=== PATIENT | female | born 1945 ===

== ENCOUNTER → 2017-05-17 | Emergency (ER) | payer OTHER ==
[~2017-05-17] VITALS: Ht 165.1 cm; Wt 72.6 kg
[~2017-05-17] MED LIST: CITALOPRAM HBR20 MG
== END | disposition home or self-care (01) ==
LOC: ER 10:39
DX: R42 Dizziness and giddiness (principal); F41.9 Anxiety disorder, unspecified

== ENCOUNTER 2018-10-20 15:03 | Outpatient (CLI) | payer OTHER | END 2018-10-20 15:07 | disposition home or self-care (01) | LOC: RAD 15:03 | DX: R05 Cough (principal); J31.0 Chronic rhinitis; J32.8 Other chronic sinusitis ==

== ENCOUNTER → 2018-10-25 16:50 | Outpatient (CLI) | payer OTHER | END | disposition home or self-care (01) | LOC: LAB 16:50 | DX: E55.9 Vitamin D deficiency, unspecified (principal); M85.88 Other specified disorders of bone density and structure, other site; E88.89 Other specified metabolic disorders; M81.8 Other osteoporosis without current pathological fracture; E56.1 Deficiency of vitamin K ==

== ENCOUNTER 2020-02-16 10:25 | Outpatient (CLI) | payer OTHER | END 2020-02-16 10:27 | disposition home or self-care (01) | LOC: SONOGRAMA 10:25 | DX: K80.50 Calculus of bile duct without cholangitis or cholecystitis without obstruction (principal) ==

== ENCOUNTER 2020-04-25 14:17 | Outpatient (CLI) | payer OTHER | END 2020-04-25 14:34 | disposition home or self-care (01) | LOC: NUCLEAR 14:17 | DX: M81.0 Age-related osteoporosis without current pathological fracture (principal) ==

== ENCOUNTER 2020-05-01 12:05 | Outpatient (CLI) | payer OTHER | END 2020-05-01 12:58 | disposition home or self-care (01) | LOC: MAMO-SONO 12:05 | PROVIDERS: ATTEND Student in an Organized Health Care Education/Training Program | DX: N83.291 Other ovarian cyst, right side (principal); N60.01 Solitary cyst of right breast; R10.2 Pelvic and perineal pain; N60.11 Diffuse cystic mastopathy of right breast; N60.12 Diffuse cystic mastopathy of left breast; Z12.31 Encounter for screening mammogram for malignant neoplasm of breast ==

== ENCOUNTER 2022-06-03 10:45 | Emergency (ER) | payer OTHER ==
[~2022-06-03] VITALS: Ht 167.6 cm; Wt 68.0 kg
== END 2022-06-03 14:11 | disposition home or self-care (01) ==
LOC: ER 10:45
DX: R00.2 Palpitations (principal); Z88.0 Allergy status to penicillin

== ENCOUNTER 2024-05-19 07:48 | Emergency (ER) | payer OTHER ==
[~2024-05-19] VITALS: Ht 165.1 cm; Wt 61.2 kg
[2024-05-19] MEDS ORDERED: MYRBETRIQ25 MG PO (08:33)
[2024-05-19] MEDS ORDERED: MECLIZINE HCL 25 MG TABLET PO ONE ×2 (08:45→08:55)
[2024-05-19 09:49] LABS: HEMATOCRIT 39.4 % (36.0-45.00); HEMOGLOBIN 13.5 g/dL (12.0-15.00); MEAN CELL VOLUME 85.7 fL (80.00-100.00); MEAN CORPUSCULAR HEMOGLOBIN 29.4 pg (27.00-32.0); MEAN CORPUSCULAR HGB CONC 34.4 g/dl (32.0-36.0); PLATELET COUNT 178 K/uL (150-450); RED BLOOD COUNT 4.59 M/uL (4.00-6.00); RED CELL DISTRIBUTION WIDTH 13.6 % (11.5-14.5)
[2024-05-19 10:16] LABS: ALBUMIN 3.8 gm/dL (3.4-5.0); BILIRUBIN TOTAL 0.49 mg/dL (0.3-1.2); CALCIUM 9.6 mg/dL (8.5-10.1); CREATININE SERUM 0.77 mg/dL (0.55-1.02); GFR 72.69; POTASSIUM 3.82 mEq/L (3.5-5.1); TOTAL PROTEIN 6.8 gm/dL (6.4-8.2)
[2024-05-19 10:25] LABS: URINE APPEARANCE Clear; URINE BILIRRUBIN Negative (NEGATIVE); URINE BLOOD Negative; URINE COLOR Yellow; URINE GLUCOSE Negative (NEGATIVE); URINE KETONE Negative (NEGATIVE); URINE LEUKOCYTE Trace; URINE NITRATE Negative; URINE PROTEIN Negative (NEGATIVE); URINE UROBILINOGEN 0.2 E.U./dl
[2024-05-19 10:29] LABS: URINE BACTERIA 7.3 uL (0.0-1933); URINE WBC 3.1 uL (0.0-23.2)
[2024-05-19 10:30] LABS: URINE RBC 1.4 uL (0.0-20.8)
[2024-05-19] MEDS ORDERED: DRAMAMINE LESS25 MG PO (12:58)
[2024-05-19] MEDS ORDERED: FUROsemide 20 MG/2 ML VIAL ONE (13:37)
== END 2024-05-19 13:12 | disposition home or self-care (01) ==
LOC: ER 07:48
PROVIDERS: General Practice
DX: R42 Dizziness and giddiness (principal); Z88.0 Allergy status to penicillin; Z20.822 Contact with and (suspected) exposure to COVID-19